=== PATIENT | female | born 1995 | race American Indian/Alaskan Native ===

== ENCOUNTER 2017-10-14 12:11 | Emergency (ER) | payer SELFPAY ==
[2017-10-14 12:31] VITALS: BP 118/72
[2017-10-14 14:57] LABS: Bilirubin,Urine NEG (Negative); Blood,Urine SM (Negative); Color,Urine Yellow (Yellow); Mucus,Urine FEW /HPF; Protein,Urine <15 mg/dL mg/dL (Negative); RBC,Urine < 1.0 /HPF (0.0-6.0); Urobilinogen,Urine < 2.0 mg/dL (<2.0)
[2017-10-14 14:59] LABS: HCG Qualitative,Urine Negative (Negative)
[2017-10-14] MEDS ORDERED: DIFLUCAN PO ONE (15:17)
--- NOTE | 2017-10-14 15:17 | Emergency Department Report ---
ED General Adult HPI - General Chief complaint: Urogenital-Female Stated complaint: ABDOMINAL PAIN Time Seen by Provider: 10/14/17 15:17 Source: patient Mode of arrival: Ambulatory Limitations: No Limitations - History of Present Illness Initial comments: She has a 22-year-old female in no significant past medical history who presents with white discharge and abdominal pain that's been going on for today. Patient states of bone pain is located in the lower portion of her abdomen. Patient's pain is a 4 out of 10 is no longer hurting. Patient denies having any dysuria name nausea or vomiting. She denies having any fever or any trauma to his abdomen. Patient is sexually active however she uses protection. Patient states she just wanted her urine tested. - Related Data Allergies Allergy/AdvReac Type Severity Reaction Status Date / Time No Known Allergies Allergy Unverified 10/14/17 12:31 ED Review of Systems ROS: Stated complaint: ABDOMINAL PAIN Other details as noted in HPI Constitutional: denies: chills, fever Eyes: denies: eye pain, eye discharge, vision change ENT: denies: ear pain, throat pain Respiratory: denies: cough, shortness of breath, wheezing Cardiovascular: denies: chest pain, palpitations Endocrine: no symptoms reported Gastrointestinal: denies: abdominal pain, nausea, diarrhea Genitourinary: discharge. denies: urgency, dysuria Musculoskeletal: denies: back pain, joint swelling, arthralgia Skin: denies: rash, lesions Neurological: denies: headache, weakness, paresthesias Psychiatric: denies: anxiety, depression Hematological/Lymphatic: denies: easy bleeding, easy bruising ED Past Medical Hx - Past Medical History Previous Medical History?: No - Surgical History Past Surgical History?: No - Social History Smoking Status: Never Smoker Substance Use Type: None ED Physical Exam - General Limitations: No Limitations General appearance: alert, in no apparent distress - Head Head exam: Present: atraumatic, normocephalic - Eye Eye exam: Present: normal appearance - ENT ENT exam: Present: mucous membranes moist - Neck Neck exam: Present: normal inspection - Respiratory Respiratory exam: Present: normal lung sounds bilaterally. Absent: respiratory distress - Cardiovascular Cardiovascular Exam: Present: regular rate, normal rhythm. Absent: systolic murmur, diastolic murmur, rubs, gallop - GI/Abdominal GI/Abdominal exam: Present: soft, normal bowel sounds - Extremities Exam Extremities exam: Present: normal inspection - Back Exam Back exam: Present: normal inspection - Neurological Exam Neurological exam: Present: alert, oriented X3 - Psychiatric Psychiatric exam: Present: normal affect, normal mood - Skin Skin exam: Present: warm, dry, intact, normal color. Absent: rash ED Course Vital Signs 10/14/17 12:28 Temperature 97.7 F Pulse Rate 77 Respiratory 20 Rate Blood Pressure 118/72 O2 Sat by Pulse 100 Oximetry ED Medical Decision Making - Lab Data Lab Results 10/14/17 Range/Units Unknown Urine Color Yellow (Yellow) Urine Turbidity Clear (Clear) Urine pH 6.0 (5.0-7.0) Ur Specific [place] 1.015 (1.003-1.030) Urine Protein <15 mg/dl (Negative) mg/dL Urine Glucose (UA) Neg (Negative) mg/dL Urine Ketones Neg (Negative) mg/dL Urine Blood Sm (Negative) Urine Nitrite Neg (Negative) Urine Bilirubin Neg (Negative) Urine Urobilinogen < 2.0 (<2.0) mg/dL Ur Leukocyte Esterase Neg (Negative) Urine WBC (Auto) 1.0 (0.0-6.0) /HPF Urine RBC (Auto) < 1.0 (0.0-6.0) /HPF U Epithel Cells (Auto) 1.0 (0-13.0) /HPF Urine Mucus Few /HPF Urine HCG, Qual Negative (Negative) - Medical Decision Making Chief medical diagnosis: Candidiasis infection Differential medical diagnosis: Urinary tract infection, Patient states that she does not want any pain medicine. I will get urine analysis urine test PATIENT oral Diflucan. Patient's urinalysis is unremarkable. Discussed outpatient followup with patient and patient agrees plan to be discharged additional verbal discharge instructions were given. Critical care attestation.: If time is entered above; I have spent that time in minutes in the direct care of this critically ill patient, excluding procedure time. ED Disposition Clinical Impression: Deisi infection, Vaginal discharge Disposition: DC-01 TO HOME OR SELFCARE Is pt being admited?: No Does the pt Need Aspirin: No Condition: Stable Instructions: Vulvovaginal Candidiasis (ED) Referrals: TAYO HESTER MD [Staff Physician] - 3-5 Days
== END 2017-10-14 15:32 | disposition home or self-care (01) ==
LOC: ED 12:11
DX: B37.9 Candidiasis, unspecified (principal); N89.8 Other specified noninflammatory disorders of vagina
CPT/HCPCS: 81001; 81025; 99283

== ENCOUNTER 2018-09-30 05:27 | Outpatient (CLI) | payer MEDICAID ==
[2018-09-30] MEDS ORDERED: LACTATED RINGERS 1,000 ML ONE (06:20)
[2018-09-30] MEDS ORDERED: ZOFRAN IV ONE (06:21)
[2018-09-30] MEDS ORDERED: LACTATED RINGERS 1,000 ML IV ONE (06:50)
[2018-09-30 07:29] VITALS: BP 101/59
[2018-09-30 10:39] LABS: Bilirubin,Urine NEG (Negative); Blood,Urine NEG (Negative); Color,Urine Yellow (Yellow); Mucus,Urine 2+ /HPF; Urobilinogen,Urine < 2.0 mg/dL (<2.0)
== END 2018-09-30 08:32 | disposition home or self-care (01) ==
LOC: TRG 05:27
PROVIDERS: ATTEND Obstetrics & Gynecology
DX: O47.03 False labor before 37 completed weeks of gestation, third trimester (principal); Z3A.28 28 weeks gestation of pregnancy
CPT/HCPCS: 81001; J2405; J7120

== ENCOUNTER 2018-12-25 04:45 | Inpatient (IN) | payer MEDICAID ==
--- NOTE | 2018-12-25 08:55 | Ultrasound Report ---
PROCEDURE: US OB FOLLOW UP, US OB BPP WO NON-STRESS TECHNIQUE: Grayscale, color Doppler and M-mode third trimester limited ultrasound and biophysical pr ofile HISTORY: VICKIE; EFW COMPARISONS: None provided FINDINGS: Single living intrauterine in cephalic presentation with recorded cardiac activit y 137 bpm. Amniotic fluid index measures approximately 5-6 cm. Maximum vertical pocket measures appro ximately 2.3 cm. Biparietal diameter is 9.3 cm Head circumference is 32.8 cm Abdominal circumference is 33.3 cm Femoral length is 7.4 cm Estimated gestational age is 37 weeks 4 days corresponding to delivery date of 01/11/2019. Last menstr ual period dating corresponds to estimated gestational age of 40 weeks 6 days. Estimated weight is 3207 g, which corresponds to the 12th percentile based on established clini jason/LMP dating. Biophysical profile score is 8/8 IMPRESSION: Single living intrauterine in cephalic presentation with estimated weight correspondi ng to the 12th percentile based on last menstrual period dating, as detailed above. Amniotic fluid index measures approximately 5-6 cm. Biophysical profile score is 8/8. This document is electronically signed by Riaz Ward MD., December 25 2018 08:53:26 AM ET
--- NOTE | 2018-12-25 11:17 | History and Physical Report ---
History of Present Illness Date of examination: 12/25/18 Date of admission: 12/25/18 07:30 Chief complaint: pain History of present illness: Patient presented complaining of contractions, FHT's were w/o variability. US revealed vickie 5.8; vtx; BPP 8/8. She has received care a [facility]. Records are now available. Upon review she was late to care. US at 24 weeks confirms ALETHEA 12/19/2018. She is scheduled for IOL tomorrow for postterm. FHT's and VICKIE discussed with patient and family. Patient states PNC has been unremarkable. Past History Past Medical History: no pertinent history Past Surgical History: no surgical history [employer] History: denies: chlamydia, gonorrhea, hepatitis B, hepatitis C, herpes, HIV, syphilis, trichomonas - Obstetrical History Expected Date of Delivery: 12/19/18 Actual Gestation: 40 Week(s) 6 Day(s) : 1 Medications and Allergies Allergies Allergy/AdvReac Type Severity Reaction Status Date / Time No Known Allergies Allergy Unverified 10/14/17 12:31 Home Medications Medication Instructions Recorded Confirmed Last Taken Type No Known Home Medications [No 12/25/18 12/25/18 Unknown History Reported Home Medications] Review of Systems All systems: negative Genitourinary: contractions - Vital Signs Vital signs: Vital Signs Pulse BP 80 116/57 12/25/18 05:08 12/25/18 05:08 Temp Pulse Resp BP Pulse Ox 99 H 118/68 98 12/25/18 11:10 12/25/18 07:58 12/25/18 11:10 - Physical Exam Breasts: Positive: deferred Cardiovascular: Regular rate Lungs: Positive: Normal air movement Abdomen: Negative: tenderness Genitourinary (Female): Positive: normal perenium Vulva: both: normal Uterus: Positive: enlarged. Negative: tender Anus/Rectum: Positive: normal perianal skin Deep Tendon Reflex Grade: Normal +2 - Obstetrical FHR: category 2 Uterine Contraction Monitor Mode: External Cervical Dilatation: 5 Cervical Effacement Percentage: 100 station: -1 Uterine Contraction Pattern: Irregular Results All other labs normal. Assessment and Plan - Patient Problems (1) 40 weeks gestation of Current Visit: Yes Status: Acute (2) Active labor Current Visit: Yes Status: Acute Plan to address problem: Anticipate vaginal delivery
[2018-12-25] MEDS ORDERED: LACTATED RINGERS 1,000 ML ONE (11:39)
[2018-12-25] MEDS ORDERED: MINERAL OIL PO PRN (11:42)
[2018-12-25] MEDS ORDERED: NARCAN 0.4 MG/1 ML IV PRN (11:42)
[2018-12-25] MEDS ORDERED: ZOFRAN IV PRN (11:42)
[2018-12-25] MEDS ORDERED: SUBLIMAZE IV PRN (11:42)
[2018-12-25] MEDS ORDERED: XYLOCAINE 2% INFILTRATI ONE ×2 (11:42→20:56)
[2018-12-25] MEDS ORDERED: BRETHINE IVP PRN (11:42)
[2018-12-25] MEDS ORDERED: BRETHINE SUB-Q PRN (11:42)
[2018-12-25] MEDS ORDERED: PITOCin/NS 20 UNIT/1000ML DRIP 20 UNITS/1,000 ML BAG IV SCH (12:00)
[2018-12-25] MEDS ORDERED: LACTATED RINGERS 1,000 ML IV SCH (12:00)
[2018-12-25 14:02] LABS: Hematocrit 28.7 % (30.3-42.9); Hemoglobin 9.8 gm/dl (10.1-14.3); Mean Corpuscular HGB Conc 34 % (30-34); Mean Corpuscular Volume 95 fl (79-97); Platelet Count 153 K/mm3 (140-440); Red Blood Count 3.01 M/mm3 (3.65-5.03)
[2018-12-25] MEDS ORDERED: MARCAINE 0.25% INFILTRATI ONE ×2 (14:26→18:50)
[2018-12-25] MEDS ORDERED: NARCAN 2 MG/2 ML IV PRN ×2 (14:47→15:22)
--- NOTE | 2018-12-25 14:47 | Anesthesia Consultation ---
Anesthesia Consult and Med Hx Date of service: 12/25/18 - Airway Anesthetic Teeth Evaluation: Good ROM Head & Neck: Adequate Mental/Hyoid Distance: Adequate Mallampati Class: Class II Intubation Access Assessment: Good - Pulmonary Exam CTA: Yes - Cardiac Exam Cardiac Exam: RRR - Pre-Operative Health Status ASA Pre-Surgery Classification: ASA2 Proposed Anesthetic Plan: Epidural - Pulmonary Hx Asthma: No COPD: No Hx Pneumonia: No - Cardiovascular System Hx Hypertension: No - Central Nervous System Hx Seizures: No Hx Psychiatric Problems: No - Endocrine Hx Renal Disease: No Hx End Stage Renal Disease: No Hx Hypothyroidism: No Hx Hyperthyroidism: No - Hematic Hx Anemia: No Hx Sickle Cell Disease: No - Other Systems Hx Alcohol Use: No
[2018-12-25] MEDS ORDERED: fentaNYL-BUPIV 2 MCG/ML-0.125% 200 MCG/100 ML BAG EPIDURAL SCH ×2 (16:00)
--- NOTE | 2018-12-25 16:59 | Progress Note ---
Assessment and Plan - Patient Problems (1) 40 weeks gestation of Current Visit: Yes Status: Acute Plan to address problem: Anticipate vaginal delivery (2) Active labor Current Visit: Yes Status: Acute Subjective - Subjective Date of service: 12/25/18 Principal diagnosis: IUP@40 6/7wga labor Patient reports: no new complaints Objective - Vital Signs Vital Signs: Vital Signs - 12hr 12/25/18 12/25/18 12/25/18 05:08 07:58 09:07 Pulse Rate 80 93 H 83 Blood Pressure 116/57 118/68 O2 Sat by Pulse 98 Oximetry 12/25/18 12/25/18 12/25/18 09:12 09:17 09:22 Pulse Rate 103 H 108 H 92 H Blood Pressure O2 Sat by Pulse 97 100 98 Oximetry 12/25/18 12/25/18 12/25/18 09:27 09:32 09:37 Pulse Rate 89 94 H 97 H Blood Pressure O2 Sat by Pulse 98 99 98 Oximetry 12/25/18 12/25/18 12/25/18 09:42 09:47 09:52 Pulse Rate 94 H 89 90 Blood Pressure O2 Sat by Pulse 98 99 98 Oximetry 12/25/18 12/25/18 12/25/18 09:57 10:02 10:07 Pulse Rate 87 85 91 H Blood Pressure O2 Sat by Pulse 98 98 97 Oximetry 12/25/18 12/25/18 12/25/18 10:12 10:17 10:25 Pulse Rate 100 H 89 Blood Pressure O2 Sat by Pulse 98 99 90 Oximetry 12/25/18 12/25/18 12/25/18 10:26 10:30 10:35 Pulse Rate 88 84 93 H Blood Pressure O2 Sat by Pulse 91 99 98 Oximetry 12/25/18 12/25/18 12/25/18 10:40 10:45 10:50 Pulse Rate 93 H 94 H 89 Blood Pressure O2 Sat by Pulse 99 97 100 Oximetry 12/25/18 12/25/18 12/25/18 10:55 11:00 11:03 Pulse Rate 87 89 91 H Blood Pressure O2 Sat by Pulse 99 100 82 L Oximetry 12/25/18 12/25/18 12/25/18 11:05 11:09 11:10 Pulse Rate 95 H 96 H 99 H Blood Pressure O2 Sat by Pulse 100 93 98 Oximetry 12/25/18 12/25/18 12/25/18 11:15 11:20 11:25 Pulse Rate 93 H 87 86 Blood Pressure O2 Sat by Pulse 77 L 99 99 Oximetry 12/25/18 12/25/18 12/25/18 11:29 11:30 11:35 Pulse Rate 100 H 103 H 102 H Blood Pressure O2 Sat by Pulse 0 L 97 98 Oximetry 12/25/18 12/25/18 12/25/18 11:40 11:43 11:45 Pulse Rate 103 H 98 H 90 Blood Pressure O2 Sat by Pulse 99 93 99 Oximetry 12/25/18 12/25/18 12/25/18 11:50 11:55 12:00 Pulse Rate 92 H 94 H 95 H Blood Pressure O2 Sat by Pulse 98 99 100 Oximetry 12/25/18 12/25/18 12/25/18 12:05 12:10 12:15 Pulse Rate 101 H 93 H 85 Blood Pressure O2 Sat by Pulse 100 100 100 Oximetry 12/25/18 12/25/18 12/25/18 12:17 12:20 12:25 Pulse Rate 84 83 Blood Pressure O2 Sat by Pulse 55 L 99 100 Oximetry 12/25/18 12/25/18 12/25/18 12:30 12:35 12:40 Pulse Rate 89 90 91 H Blood Pressure O2 Sat by Pulse 90 81 L 88 Oximetry 12/25/18 12/25/18 12/25/18 12:45 12:50 12:54 Pulse Rate 86 95 H 83 Blood Pressure O2 Sat by Pulse 99 100 81 L Oximetry 12/25/18 12/25/18 12/25/18 12:55 13:00 13:05 Pulse Rate 82 90 86 Blood Pressure O2 Sat by Pulse 100 98 99 Oximetry 12/25/18 12/25/18 12/25/18 13:10 13:15 13:20 Pulse Rate 100 H 79 95 H Blood Pressure O2 Sat by Pulse 98 99 99 Oximetry 12/25/18 12/25/18 12/25/18 13:25 13:30 13:35 Pulse Rate 72 88 80 Blood Pressure O2 Sat by Pulse 100 99 99 Oximetry 12/25/18 12/25/18 12/25/18 13:40 13:45 13:47 Pulse Rate 92 H 86 79 Blood Pressure O2 Sat by Pulse 96 99 86 Oximetry 12/25/18 12/25/18 12/25/18 13:50 13:55 14:00 Pulse Rate 80 88 83 Blood Pressure O2 Sat by Pulse 98 99 98 Oximetry 12/25/18 12/25/18 12/25/18 14:05 14:28 14:33 Pulse Rate 77 99 H 114 H Blood Pressure O2 Sat by Pulse 100 99 92 Oximetry 12/25/18 12/25/18 12/25/18 14:36 14:38 14:39 Pulse Rate 93 H 54 L Blood Pressure 125/75 O2 Sat by Pulse 65 L 73 L Oximetry 12/25/18 12/25/18 12/25/18 14:42 14:43 14:45 Pulse Rate 214 H 109 H 112 H Blood Pressure 141/82 O2 Sat by Pulse 96 92 Oximetry 12/25/18 12/25/18 12/25/18 14:48 14:53 14:55 Pulse Rate 100 H 81 90 Blood Pressure 141/66 O2 Sat by Pulse 97 99 94 Oximetry 12/25/18 12/25/18 12/25/18 14:58 15:03 15:08 Pulse Rate 76 76 105 H Blood Pressure O2 Sat by Pulse 48 L 100 99 Oximetry 12/25/18 12/25/18 12/25/18 15:13 15:18 15:21 Pulse Rate 103 H 91 H 89 Blood Pressure 132/67 O2 Sat by Pulse 99 99 Oximetry 12/25/18 12/25/18 12/25/18 15:23 15:26 15:28 Pulse Rate 78 102 H 81 Blood Pressure O2 Sat by Pulse 99 70 L 99 Oximetry 12/25/18 12/25/18 12/25/18 15:33 15:34 15:38 Pulse Rate 79 88 84 Blood Pressure 99/53 O2 Sat by Pulse 99 91 99 Oximetry 12/25/18 12/25/18 12/25/18 15:43 15:48 15:53 Pulse Rate 91 H 95 H 94 H Blood Pressure O2 Sat by Pulse 97 100 99 Oximetry 12/25/18 12/25/18 12/25/18 15:58 16:03 16:07 Pulse Rate 91 H 81 89 Blood Pressure O2 Sat by Pulse 98 99 84 Oximetry 12/25/18 12/25/18 12/25/18 16:08 16:13 16:15 Pulse Rate 85 78 87 Blood Pressure O2 Sat by Pulse 100 99 52 L Oximetry 12/25/18 12/25/18 12/25/18 16:16 16:21 16:22 Pulse Rate 86 79 90 Blood Pressure 120/59 122/92 O2 Sat by Pulse 78 L Oximetry 12/25/18 12/25/18 12/25/18 16:27 16:28 16:36 Pulse Rate 63 80 Blood Pressure 125/74 O2 Sat by Pulse 90 74 L Oximetry 12/25/18 16:51 Pulse Rate 98 H Blood Pressure 132/77 O2 Sat by Pulse Oximetry - Exam Breasts: deferred Lungs: Normal air movement Abdomen: Absent: tenderness Vulva: both: normal Uterus: Present: fundal height above umbilicus. Absent: tenderness FHR: category 1 Uterine Contraction Monitor Mode: Internal Cervical Dilatation: 6.5 Cervical Effacement Percentage: 90 station: -1, AROM clear, IUPC and ISE placed without difficulty with patient consent Uterine Contraction Pattern: Regular - Labs Labs: Abnormal Labs 12/25/18 13:30 RBC 3.01 L Hgb 9.8 L Hct 28.7 L MCH 33 H Laboratory Results - last 24 hr 12/25/18 12/25/18 12/25/18 12:40 12:45 13:30 WBC 10.1 RBC 3.01 L Hgb 9.8 L Hct 28.7 L MCV 95 MCH 33 H MCHC 34 RDW 14.0 Plt Count 153 RPR Nonreactive Blood Type O POSITIVE Antibody Screen Negative
[2018-12-25] MEDS ORDERED: PITOCin/NS 30 UNIT/500ML 30 UNITS/500 ML BAG IV SCH (18:00)
--- NOTE | 2018-12-25 21:59 | Procedure Note ---
OB Delivery Note - Delivery Date of Delivery: 12/25/18 Surgeon: CHELLY VAUGHAN Estimated blood loss: 200cc - Vaginal Delivery presentation: vertex Delivery position: OA Intrapartum events: none Delivery induction: none Delivery augmentation: rupture of membranes, pitocin Delivery monitor: external FHT, external uterine, internal FHT, internal uterine Route of delivery: Delivery placenta: spontaneous (INTACT) Episiotomy: none Delivery laceration: none Anesthesia: epidural - Infant A at 1 minute: 8 at 5 minutes: 9 Gender: Female (6lb 4oz)
[2018-12-26] MEDS ORDERED: ZOFRAN IV PRN (00:28)
[2018-12-26] MEDS ORDERED: HEMABATE IM PRN (00:28)
[2018-12-26] MEDS ORDERED: PHENERGAN PO PRN (00:28)
[2018-12-26] MEDS ORDERED: DULCOLAX PR PRN (00:28)
[2018-12-26] MEDS ORDERED: SODIUM CHLORIDE FLUSH SYRINGE 10 ML IV PRN (00:28)
[2018-12-26] MEDS ORDERED: BENADRYL PO PRN (00:28)
[2018-12-26] MEDS ORDERED: TUCKS PAD TP PRN (00:28)
[2018-12-26] MEDS ORDERED: PHENERGAN PR PRN (00:28)
[2018-12-26] MEDS ORDERED: LANSINOH TP PRN (00:28)
[2018-12-26] MEDS ORDERED: MILK OF MAGNESIA PO PRN (00:28)
[2018-12-26] MEDS ORDERED: DERMOPLAST TP PRN (00:28)
[2018-12-26] MEDS ORDERED: TYLENOL PO PRN (00:28)
[2018-12-26] MEDS ORDERED: METHERGINE IM PRN (00:28)
[2018-12-26] MEDS ORDERED: PITOCin/NS 20 UNIT/1000ML DRIP 20 UNITS/1,000 ML BAG IV PRN (00:28)
[2018-12-26] MEDS: IBUPROFEN PO SCH ×5 (00:49→23:44)
--- NOTE | 2018-12-26 08:06 | Post Anesthesia Evaluation ---
- Post Anesthesia Evaluation Patient Participated: Yes Airway Patent: Yes Stable Respiratory Function: Yes Nausea/Vomiting: No Temp > 96.8F: Yes Pain Manageable: Yes Adequeate Hydration: Yes Anesthesia Complications: No Block Receding Appropriately: Yes Patient on Ventilator: No
[2018-12-26 09:52] LABS: Hematocrit 27.8 % (30.3-42.9); Hemoglobin 9.3 gm/dl (10.1-14.3)
--- NOTE | 2018-12-26 13:51 | Progress Note ---
Assessment and Plan Continue PP pathway - Patient Problems (1) ND (normal delivery) Current Visit: Yes Status: Acute (2) Single live Current Visit: Yes Status: Acute Subjective - Subjective Date of service: 12/26/18 Principal diagnosis: PPD #1 Interval history: Patient presented complaining of contractions, FHT's were w/o variability. US revealed vickie 5.8; vtx; BPP 8/8. She has received care a [facility]. Records are now available. Upon review she was late to care. US at 24 weeks confirms ALETHEA 12/19/2018. She is scheduled for IOL tomorrow for postterm. FHT's and VICKIE discussed with patient and family. Patient states PNC has been unremarkable. Patient reports: appetite normal, voiding normally, pain well controlled, ambulating normally Objective - Vital Signs Latest vital signs: Vital Signs Temp Pulse Resp BP BP Pulse Ox 12/26/18 12:24 98.3 F 78 18 131/81 98 12/26/18 08:14 97.9 F 63 18 134/69 100 12/26/18 05:50 98.3 F 69 20 113/69 98 12/25/18 23:55 98.9 F 102 H 18 138/82 99 12/25/18 22:50 120 H 150/79 12/25/18 22:35 73 154/85 12/25/18 21:53 82 100 12/25/18 21:50 84 150/83 12/25/18 21:48 92 H 100 12/25/18 21:46 88 92 12/25/18 21:43 90 92 12/25/18 21:40 104 H 64 L 12/25/18 21:38 90 99 12/25/18 21:35 86 145/74 12/25/18 21:33 90 100 12/25/18 21:28 94 H 97 12/25/18 21:23 111 H 97 12/25/18 21:22 108 H 93 12/25/18 21:20 108 H 146/77 12/25/18 21:18 112 H 100 12/25/18 20:50 105 H 140/77 12/25/18 20:21 91 H 136/62 12/25/18 19:35 70 150/90 12/25/18 19:21 71 158/92 12/25/18 19:05 75 138/85 12/25/18 18:50 75 143/91 12/25/18 18:35 76 131/87 12/25/18 18:20 84 139/94 12/25/18 18:05 77 129/63 12/25/18 17:51 86 130/64 12/25/18 17:35 76 119/65 12/25/18 17:06 102 H 115/82 12/25/18 16:51 98 H 132/77 12/25/18 16:36 80 125/74 12/25/18 16:28 74 L 12/25/18 16:27 63 90 12/25/18 16:22 90 78 L 12/25/18 16:21 79 122/92 12/25/18 16:16 86 120/59 12/25/18 16:15 87 52 L 12/25/18 16:13 78 99 12/25/18 16:08 85 100 12/25/18 16:07 89 84 12/25/18 16:03 81 99 12/25/18 15:58 91 H 98 12/25/18 15:53 94 H 99 12/25/18 15:48 95 H 100 12/25/18 15:43 91 H 97 12/25/18 15:38 84 99/53 99 12/25/18 15:34 88 91 12/25/18 15:33 79 99 12/25/18 15:28 81 99 12/25/18 15:26 102 H 70 L 12/25/18 15:23 78 99 12/25/18 15:21 89 132/67 12/25/18 15:18 91 H 99 12/25/18 15:13 103 H 99 12/25/18 15:08 105 H 99 12/25/18 15:03 76 100 12/25/18 14:58 76 48 L 12/25/18 14:55 90 94 12/25/18 14:53 81 99 12/25/18 14:48 100 H 141/66 97 12/25/18 14:45 112 H 92 12/25/18 14:43 109 H 96 12/25/18 14:42 214 H 141/82 12/25/18 14:39 73 L 12/25/18 14:38 54 L 65 L 12/25/18 14:36 93 H 125/75 12/25/18 14:33 114 H 92 12/25/18 14:28 99 H 99 12/25/18 14:05 77 100 12/25/18 14:00 83 98 12/25/18 13:55 88 99 12/25/18 13:50 80 98 Intake and Output 12/25/18 12/26/18 12/26/18 22:59 06:59 14:59 Intake Total 120 840 Output Total 1200 1250 750 Balance -1200 -1130 90 Intake: Oral 600 Intake, Free Water 120 240 Output: Urine 1200 1250 750 Void 1200 1250 750 Other: Total, Intake Amount 240 Total, Output Amount 500 450 400 # Voids Void 1 Estimated Blood Loss 200 - Exam Breasts: Present: normal. Absent: pain, engorged Abdomen: Present: normal appearance, soft. Absent: tenderness Uterus: Present: firm, fundal height below umbilicus. Absent: tenderness Extremities: Present: normal - Labs Labs: Abnormal lab results 12/25/18 12/26/18 Range/Units 13:30 09:41 RBC 3.01 L (3.65-5.03) M/mm3 Hgb 9.8 L 9.3 L (10.1-14.3) gm/dl Hct 28.7 L 27.8 L (30.3-42.9) % MCH 33 H (28-32) pg
[2018-12-27] MEDS: IBUPROFEN PO SCH ×2 (05:51→11:53)
[2018-12-27] MEDS ORDERED: BOOSTRIX IM ONE (06:00)
--- NOTE | 2018-12-27 06:26 | Discharge Summary ---
Providers - Providers Date of Admission: 12/25/18 07:30 Date of discharge: 12/27/18 (pt desires d/c ) Attending physician: MARVEL CRONIN 12/26/18 00:28 Consult to Logistic Specialist [CONS] Routine Reason For Exam: assistance with , SNS Primary care physician: CASING MAN Hospitalization Reason for admission: active labor Delivery: Episiotomy: none Laceration: none Incision: normal Other procedures: none complications: none Discharge diagnosis: IUP at term delivered baby: female Hospital course: uncomplicated vaginal delivery Pt w/o complaint VSS FF below umb Lochia small perineum intact H&H 04/15 stable No s/sx of anemia Doing well s/p vag delivery P: d/c today with instructions RTO 4 weeks PP care. Information provided to f/u in our office. Condition at discharge: Good Disposition: DC-01 TO HOME OR SELFCARE - Discharge Diagnoses (1) ND (normal delivery) Status: Acute Comment: RTO 4 weeks PP care Plan - Provider Discharge Summary Activity: routine, no sex for 6 weeks, no heavy lifting 4 weeks, no strenuous exercise Diet: routine Instructions: routine Additional instructions: [] Smoking cessation referral if applicable(refer to patient education folder for contact #) [] Refer to [facility]'s [facility] Booklet Call your doctor immediately for: * Fever > 100.5 * Heavy vaginal bleeding ( >1 pad per hour) * Severe persistent headache * Shortness of breath * Reddened, hot, painful area to leg or breast * Drainage or odor from incision. * Keep incision clean and dry at all times and follow doctor's instructions regarding bathing/showering - Follow up plan Follow up: PRIMARY CARE, [Primary Care Provider] - 7 Days TINA BUNCH CNM [Advanced Practice Nurse] - 01/24/19 (Congratulations! Please call [phone] to schedule your visit in 4 weeks. Motrin/ibuprofen for cramping/pain. Call with concerns. TIEN, [address], [address], [place] [address])
[2018-12-27 14:44] VITALS: BP 119/82
== END 2018-12-27 15:00 | disposition home or self-care (01) | DRG 775 ==
LOC: TRG 04:45 → LD 07:30 → OB 12-26 00:21
PROVIDERS: ADMIT Obstetrics & Gynecology; ATTEND Obstetrics & Gynecology
PROC: 10E0XZZ Delivery of Products of Conception, External Approach (ICD-10-PCS; principal; 2018-12-25)
PROC: 3E0R3BZ Introduction of Anesthetic Agent into Spinal Canal, Percutaneous Approach (ICD-10-PCS; 2018-12-25)
PROC: 00HU33Z Insertion of Infusion Device into Spinal Canal, Percutaneous Approach (ICD-10-PCS; 2018-12-25)
DX: O48.0 Post-term pregnancy (principal); Z3A.40 40 weeks gestation of pregnancy; Z37.0 Single live birth
CPT/HCPCS: 36415; 59025; 76816; 76819; 85014; 85018; 85027; 86592; 86850; 86900; 86901; 96360; 96361; 96365; 96366; G0378; A6250; J2590; J3010; J7120